=== PATIENT | female | born 2000 | race American Indian/Alaskan Native ===

== ENCOUNTER 2022-03-10 22:25 | Emergency (ER) | payer OTHER ==
[~2022-03-10] VITALS: Ht 170.2 cm; Wt 70.0 kg
[2022-03-11 00:03] VITALS: BP 131/74
[2022-03-11] MEDS ORDERED: ACETAMINOPHEN 325MG TABLET PO STA (00:25)
[2022-03-11 00:56] LABS: BASOPHILS % 0.4 % (0.0-2.0); EOSINOPHILS % 0.3 % (0.0-5.0); HEMATOCRIT. 34.6 % (36.0-48.0); HEMOGLOBIN. 11.1 g/dL (12.0-16.0); LYMPHOCYTES % 13.7 % (20.0-50.0); MEAN CORPUSCULAR HEMOGLOBIN 25.2 pg (28.0-32.0); MEAN CORPUSCULAR VOLUME 78.4 fL (81.0-99.0); MEAN PLATELET VOLUME 7.9 fl (7.4-10.4); MONOCYTES % 7.6 % (2.0-8.0); PLATELET 269 x1000/uL (130-400); RED BLOOD CELL COUNT 4.42 mill/uL (4.2-5.4); RED CELL DISTRIBUTION WIDTH 20.8 % (11.6-14.6)
[2022-03-11 01:04] LABS: CHLORIDE 108 mEq/L (98-107)
[2022-03-11 03:15] LABS: CLARITY URINE CLEAR (CLEAR); COLOR URINE YELLOW (YELLOW); KETONES URINE TRACE (NEGATIVE); LEUKOCYTE ESTERASE URINE TRACE (NEGATIVE); NITRITE URINE POSITIVE (NEGATIVE); OCCULT BLOOD URINE 3+ (NEGATIVE); PH URINE 5.5 (4.5-8.0); PROTEIN URINE 1+ (NEGATIVE); SPECIFIC GRAVITY URINE 1.029 (1.005-1.030)
[2022-03-11] MEDS ORDERED: CEPH500T MT (03:59)
[2022-03-11] MEDS ORDERED: CEPHALEXIN 250MG CAPSULE PO SCH (04:00)
== END 2022-03-11 04:43 | disposition home or self-care (01) ==
LOC: ER 22:25
DX: N93.8 Other specified abnormal uterine and vaginal bleeding (principal); Z98.890 Other specified postprocedural states
CPT/HCPCS: 36415; 80053; 81003; 81025; 85025; 86850; 86900; 99283